=== PATIENT | male | born 1955 | race Caucasian/White ===

== ENCOUNTER 2018-08-11 05:46 | Observation (INO) | payer OTHER ==
--- NOTE | 2018-08-03 10:25 | GHP ---
DATE OF ADMISSION: 08/11/2018 PROBLEM: Right knee degenerative arthritis. HISTORY OF PRESENT ILLNESS: The patient is a 63-year-old man admitted for a right total knee arthrop lasty. He has been receiving intermittent viscosupplementation injections since 2012. The most rece nt injections in March did not help. His knee has been progressively more painful. It feels unstable . If he missteps and jams the knee, he gets excruciating pain. He has failed nonsurgical treatment. He is having significant pain, which is limiting his activities and quality of life. He is admitte d for a right total knee arthroplasty. PAST MEDICAL HISTORY: Overall, he is in good general health. He has an enlarged prostate. He has n octuria 2-3 times per night. He also has chronic lower extremity swelling. I have ordered of previo us lower extremity ultrasound. There was no evidence of DVT. No history of heart disease, stents, D VT, hepatitis, MRSA infections, or bleeding problems. He snores. He has had a previous sleep test, which was inconclusive. CURRENT MEDICATIONS: Flomax and finasteride for his prostate. ALLERGIES: Drug allergies: None. Metal allergy: None. Latex allergy: None. SOCIAL HISTORY: The patient is . 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 He does not smoke cigarettes and occasionally drinks alcohol. FAMILY HISTORY: Positive for cancer. PHYSICAL EXAMINATION: GENERAL: He is a large man. Height 6 feet 2 inches. Weight 305 pounds. Eye s: Conjunctivae and sclerae are clear. Pupils are round and reactive. MOUTH: Good oral hygiene. No loose teeth. CHEST: Clear. HEART: Regular rhythm. No murmurs. EXTREMITIES: Pertinent findin gs are limited to his right knee. He lacks about 5 degrees of full extension and flexes to 110 degre es. He has a small effusion. He is tender medially and laterally. His ligaments are stable. He plummer s chronic lower extremity edema. He has some skin changes in the lower legs suggestive of stasis parviz matitis. IMPRESSION ON ADMISSION: 1. Right knee advanced medial compartment degenerative arthritis. He is prepared for right total kn ee arthroplasty. 2. Obesity. PLAN: He will undergo a right total knee arthroplasty. The surgery has been described to him, inclu ding the risks, complications, expectations, and recovery time. I have stressed the importance of po stoperative physical therapy. I have talked to him about the risk of postop knee stiffness. Advisin g him that about 85% of people are very happy with the results of a total knee replacement, but 15% o f people are not completely satisfied. He is quite young and he is a large man. I have advised him there is a reasonable chance that he might require revision surgery in the future. Because of his si ze, I think I am going to use a cemented stem tibial component for additional stability. All his que stions have been answered, and he consents to surgery. /[id number]/MODL
[2018-08-11] MEDS ORDERED: TRANEXAMIC ACID 2,000 MG in NS 100 ML IV ONE (06:00)
[2018-08-11] MEDS ORDERED: ceFAZolin 3 GM in D5W 100 ML IV ONE (06:00)
[2018-08-11] MEDS ORDERED: ROPIVACAINE 0.2% 80 MG, EPINEPHrine 0.2 MG, KETOROLAC TROMETHAMINE 30 MG in SYRINGE 0 ML IU ONE (06:00)
[2018-08-11] MEDS ORDERED: TRANEXAMIC ACID 3,000 MG in NS (SYRINGE) 50 ML IRR ONE (06:00)
[2018-08-11] MEDS ORDERED: POVIDONE-IODINE 20 ML in SODIUM CL IRRIG SOLUTION 500 ML IRR ONE (06:00)
[2018-08-11] MEDS ORDERED: ONDANSETRON 4 MG/2 ML VIAL IVP ONE (06:17)
[2018-08-11] MEDS ORDERED: FAMOTIDINE 20 MG TAB PO ONE (06:17)
[2018-08-11] MEDS ORDERED: GABAPENTIN 300 MG CAP PO ONE (06:17)
[2018-08-11] MEDS ORDERED: DEXAMETHASONE 4 MG/ML VIAL IVP ONE (06:17)
[2018-08-11] MEDS ORDERED: ACETAMINOPHEN 325 MG TAB PO ONE (06:17)
[2018-08-11] MEDS ORDERED: LIDOCAINE 1% 2 ML INJ ID PRN (06:17)
[2018-08-11] MEDS ORDERED: LR 1,000 ML IV ONE (06:17)
[2018-08-11] MEDS ORDERED: MIDAZOLAM 2 MG/2 ML VIAL IVP ONE (06:46)
--- NOTE | 2018-08-11 06:48 | PDANEPAE ---
ANE History of Present Illness Right Knee Pain ANE Past Medical History - Cardiovascular History Hx Hypertension: No Hx Arrhythmias: No Hx Chest Pain: No Hx Coronary Artery / Peripheral Vascular Disease: No Hx CHF / Valvular Disease: No Hx Palpitations: No - Pulmonary History Hx COPD: No Hx Asthma/Reactive Airway Disease: No Hx Recent Upper Respiratory Infection: No Hx Oxygen in Use at Home: No Hx Sleep Apnea: No Sleep Apnea Screening Result - Last Documented: Positive Pulmonary History Comment: KVNG TRIGGERS - Neurologic History Hx Cerebrovascular Accident: No Hx Seizures: No Hx Dementia: No - Endocrine History Hx Diabetes: No Obesity: severe - Renal History Hx Renal Disorders: No - Liver History Hx Hepatic Disorders: No - Neurological & Psychiatric Hx Hx Neurological and Psychiatric Disorders: No - Cancer History Hx Cancer: No - Congenital Disorder History Hx Congenital Disorders: No - GI History Hx Gastrointestinal Disorders: No - Other Health History Other Health History: WEARS GLASSES - Chronic Pain History Chronic Pain: Yes (RIGHT KNEE) - Surgical History Prior Surgeries: BROKEN BONES IN HAND SET X1. IN OFFICED FOOT SURGERY ANE Review of Systems Review of Systems: - Exercise capacity METS (RN): 4 METS ANE Patient History - Allergies Allergies/Adverse Reactions: No Known Allergies Allergy (Verified 07/14/18 16:33) - Home Medications Home Medications: Ibuprofen [Motrin (*)] 200 - 600 mg PO Q6H PRN 07/07/18 [Last Taken 08/04/18] Tamsulosin HCl [Flomax 0.4 MG (*)] 0.4 mg PO DAILY 07/07/18 [Last Taken 03:30] Dutasteride [Avodart 0.5 MG (*)] 0.5 mg PO DAILY 07/14/18 [Last Taken 08/11/18 03:30] - NPO status NPO Since - Liquids (Date): 08/11/18 NPO Since - Liquids (Time): 03:30 NPO Since - Solids (Date): 08/10/18 NPO Since - Solids (Time): 19:00 - Anes Hx Anes Hx: no prior problems - Smoking Hx Smoking Status: Former smoker - Family Anes Hx Family Hx Anesthesia Complications: NONE ANE Labs/Vital Signs - Vital Signs Height: 187.96 cm Weight: 136.078 kg ANE Physical Exam - Airway Neck exam: FROM Mallampati Score: Class 2 Mouth exam: abnormal chin (< 3 fb TM distance) - Pulmonary Pulmonary: no respiratory distress - Cardiovascular Cardiovascular: regular rate and rhythym - ASA Status ASA Status: III ANE Anesthesia Plan Anesthesia Plan: MAC, spinal (Plan for spinal and adductor canal catheter. Discussed conversion to GA if necessary.) Regional Anesthesia: continuous NB, adductor canal FNB
[2018-08-11] MEDS ORDERED: VANCOMYCIN 1 GM VIAL ONE (06:54)
[2018-08-11] MEDS ORDERED: TRANEXAMIC ACID 3,000 MG/50 ML BAG IRR ONE (06:54)
[2018-08-11] MEDS ORDERED: ceFAZolin 1 GM/5 ML SYR ONE (06:55)
[2018-08-11] MEDS ORDERED: PROPOFOL/EMULSION 500 MG/50 ML BOTTLE IV ONE (06:59)
[2018-08-11] MEDS ORDERED: fentaNYL 100 MCG/2 ML INJ ONE ×3 (06:59→09:56)
[2018-08-11] MEDS ORDERED: BUPIVACAINE/DEXTROSE 7.5MG/ML 2 ML SPINAL AMP SP ONE (07:00)
--- NOTE | 2018-08-11 07:04 | PDHPUP ---
History & Physical Update H&P update statement: This history and physical update is based on an assessment of the patient which was completed after admission or registration (within 24 hours), but prior to the surgery/procedure. H&P update: H&P reviewed & patient examined
[2018-08-11] MEDS ORDERED: DEXAMETHASONE 4 MG/ML VIAL ONE ×2 (08:15→08:16)
[2018-08-11] MEDS ORDERED: ROCURONIUM 50 MG/5 ML VIAL ONE (08:15)
[2018-08-11] MEDS ORDERED: ONDANSETRON 4 MG/2 ML VIAL ONE (08:16)
[2018-08-11] MEDS ORDERED: oxyCODONE IR 5 MG TAB PO PRN ×2 (08:53→09:43)
[2018-08-11] MEDS ORDERED: METOCLOPRAMIDE 10 MG/2 ML VIAL IVP PRN ×2 (08:53→09:43)
[2018-08-11] MEDS ORDERED: LABETALOL HCL 5 MG/ML 20 ML MDV IVP PRN (08:53)
[2018-08-11] MEDS ORDERED: NALOXONE HCL 0.4 MG/ML INJ IVP PRN (08:53)
[2018-08-11] MEDS ORDERED: MEPERIDINE 25 MG/0.5 ML AMP IVP PRN (08:53)
[2018-08-11] MEDS ORDERED: PROMETHAZINE HCL 25 MG/ML INJ IVP PRN ×2 (08:53→09:43)
[2018-08-11] MEDS ORDERED: LR 500 ML IV PRN (08:53)
--- NOTE | 2018-08-11 09:22 | POSTOPPROG ---
Post Op Note Date of Operation: 08/11/18 Surgeon: Anthony Munroe Inspection Supervisor: Sara Anesthesiologist: Jacoby Anesthesia: GET(General Endotracheal), IV Sedation, Spinal Post-op Diagnosis: Right knee severe degenerative arthritis. Procedure: Right total knee arthroplasty Inf/Abcess present in the surg proc area at time of surgery?: No EBL: 50-100 (Adductor canal block in PACU with indwelling catheter)
[2018-08-11] MEDS ORDERED: DIPHENOXYLATE/ATROPINE LOMOTIL 1 TAB PO PRN (09:43)
[2018-08-11] MEDS ORDERED: NS 500 ML IV PRN (09:43)
[2018-08-11] MEDS ORDERED: ONDANSETRON DISINTEGRATING 4 MG TAB PO PRN (09:43)
[2018-08-11] MEDS ORDERED: MAGNESIUM HYDROXIDE 30 ML UDCUP PO PRN (09:43)
[2018-08-11] MEDS ORDERED: ONDANSETRON 4 MG/2 ML VIAL IVP PRN (09:43)
[2018-08-11] MEDS ORDERED: TEMAZEPAM 15 MG CAP PO PRN (09:43)
[2018-08-11] MEDS ORDERED: LACTULOSE 20 GM/30 ML UDCUP PO PRN (09:43)
[2018-08-11] MEDS ORDERED: PROMETHAZINE HCL 25 MG SUPPR PR PRN (09:43)
[2018-08-11] MEDS ORDERED: traMADol 50 MG TAB PO PRN (09:43)
[2018-08-11] MEDS ORDERED: CYCLOBENZAPRINE 10 MG TAB PO PRN (09:43)
[2018-08-11] MEDS ORDERED: diphenhydrAMINE 25 MG CAP PO PRN (09:43)
[2018-08-11] MEDS ORDERED: POLYETHYLENE GLYCOL 3350 17 GM PKT PO PRN (09:43)
[2018-08-11] MEDS ORDERED: BISACODYL 10 MG SUPP PR PRN (09:43)
[2018-08-11] MEDS: fentaNYL 100 MCG/2 ML INJ IVP PRN ×2 (09:59→10:05)
[2018-08-11] MEDS ORDERED: LR 1,000 ML IV SCH (10:00)
[2018-08-11] MEDS ORDERED: HYDROmorphONE/DILAUDID 2 MG/ML INJ ONE (10:03)
[2018-08-11] MEDS: HYDROmorphONE/DILAUDID 2 MG/ML INJ IVP PRN ×3 (10:06→10:40)
--- NOTE | 2018-08-11 12:16 | POSTANESTH ---
Post Anesthetic Evaluation Cardiovascular Status: Normal, Stable Respiratory Status: Normal, Stable Level of Consciousness/Mental Status: Can Participate in Eval Pain Control: Adequate, Prn Tx Ordered Nausea/Vomiting Control: Adequate, Prn Tx Ordered Complications Possibly Related to Anesthesia: None Noted
[2018-08-11] MEDS: DUTASTERIDE 0.5 MG CAP PO SCH (12:24)
[2018-08-11] MEDS: KETOROLAC 15 MG/1 ML SDV IVP SCH ×3 (12:24→23:29)
[2018-08-11] MEDS: ACETAMINOPHEN 325 MG TAB PO SCH ×3 (12:25→23:30)
[2018-08-11] MEDS: TAMSULOSIN HCL 0.4 MG CAP PO SCH (12:31)
--- NOTE | 2018-08-11 12:33 | ASMTCMCOM ---
CM Note CM Note Notes: Pt's chart reviewed for d/c planning. Pt is a 63 y/o male who underwent rt total knee arthroplasty. Pt is fairly healthy with an enlarged prostate, nocturia 2-3x a night and chronic lower extremity swelling. 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 His surgeon stressed how important physical therapy will be to his recovery. It is unclear right now whether the surgeon will recommend out-pt or in home. CM will follw. D/C Plan: TBD Date Signed: 08/11/2018 12:33 PM Electronically Signed By:Beatrice Mckeon
--- NOTE | 2018-08-11 13:06 | GOP ---
DATE OF OPERATION: 08/11/2018 SURGEON: Anthony Munroe MD IRONWORKER WIRE FENCE ERECTOR: Kimani Alvarez BENEFITS ADVISOR and NING Romero ANESTHESIA: A combination of Marcaine, spinal, general anesthesia, an adductor canal block. ANESTHESIOLOGIST: Dr. Mike PREOPERATIVE DIAGNOSIS: Right knee severe degenerative arthritis with varus deformity. POSTOPERATIVE DIAGNOSIS: Right knee severe degenerative arthritis with varus deformity. PROCEDURE PERFORMED: Right total knee arthroplasty, cemented, Cantor and Nephew Journey II, posterior stabilized. FINDINGS: DESCRIPTION OF PROCEDURE: The patient was given 3 g of IV Ancef preoperatively within 60 minutes of surgery. He also received 2000 mg of IV tranexamic acid. He weighed approximately 305 pounds. He w as placed on the operating room table and Dr. Mike gave him spinal anesthesia. He was then place d supine. It became apparent that the spinal anesthesia was not affective. He was then given genera l endotracheal anesthesia. A Szymanski catheter was not used. He wore a ANTOINETTE stocking and SCD on the non operative leg. A bolster was placed under the right hip to prevent excessive external rotation of th e leg. He had a very large bulky leg. His right lower extremity was prepped with ChloraPrep from th e upper thigh tourniquet to the tips of the toes. It was draped free using sterile sheets, stockinet te, and Ioban plastic adhesive drape. His lower leg was wrapped with compressive Coban. The leg was exsanguinated with elevation and a 6-inch compressive wrap, and the pneumatic tourniquet was inflate d to 350 mmHg. The [employer] Health Organization time-out was performed to verify the correct patient identity and the c orrect surgical side and site. The [place] time-out was also performed. The Bag Borrow or Stealayo leg holding device was sterilely attached to the operating room table and used throughout the procedure to help position the knee. A straight midline incision was made centered on the patell a. Subcutaneous tissues were sharply divided and hemostasis was obtained using electrocautery. A mendiola bcutaneous flap was developed and the capsule and synovium were opened in medial parapatellar fashion . Extensive degenerative changes were present in the medial compartment and patellofemoral joint. H is medial capsule and periosteum were elevated off the rim of the medial tibial plateau all the way a round to the posteromedial corner. His medial collateral ligament was released enough to balance the medial side of the knee. In order to improve exposure, his patella was prepared first. The original thickness of the patella was measured. Peripheral osteophytes were removed. I cut a flat surface on the back of the patella. He was sized for a 41 mm round resurfacing patellar component. I removed enough bone from the srinivasan lla, such that the remaining bone, plus the thickness of the patellar component recreated the origina l thickness of the patella. The composite thickness was 27 mm. The intramedullary alignment guide system was used to set up the distal femoral cut. The distal femu r was cut in 5 degrees of valgus. Because of an 8 to 10 degree flexion contracture, I made a +2 mm c ut on the distal femur. The sizing jig was used to determine proper femoral sizing. I shifted the j ig anteriorly 1 mm in order to accommodate a size 7 femoral component without notching the anterior c ortex. The 5-in-1 cutting block was applied, and the anterior and posterior condylar cuts and chamfe r cuts were made. The final jig was used to remove the central portion of the distal femur to accomm odate the posterior stabilized femoral component. I was careful to determine proper rotation by refe rencing off Whitesides line and other bony landmarks. Each cut was checked for accuracy. The femur was sized for a size 7 posterior stabilized component. Next, the tibial component was prepared. The proximal tibial cut was made using the extramedullary a lignment guide system. The cut was made in a few degrees of posterior slope. Because of his large s ize, I removed a little extra bone from the tibia in order to have a thicker tibial component. I was careful to achieve proper varus valgus alignment and proper rotation. The posterior compartment was cleared of meniscal remnants. Osteophytes were removed from the back of the femoral condyles. I ch ecked the flexion, extension gaps and they were equal and balanced. The tibia was sized for a size 6 component. With the trial components in place, I selected a 13 mm polyethylene posterior stabilized tibial inser t. The knee came to full extension and flexed to 120 degrees. He had about 2 mm of lateral laxity i n extension because of his previous varus deformity. His collateral ligaments were stable and balanc ed in flexion. The patellar button was applied, and tracking was checked. Tracking was excellent wi thout any digital pressure. Because of his size and weight, I chose to use a stem on the tibial base plate. The proximal tibia w as prepared for an 18 mm diameter stem. 40 cc of the joint anesthetic cocktail were injected into the posterior capsule, and the quadriceps m uscle area, and the subcutaneous tissues along the skin edges. The surfaces were prepared for cementing. They were carefully cleaned with the pulsating lavage and thoroughly dried. The CarboJet device was used to blow dry the cancellous surfaces. A double batch of high viscosity methylmethacrylate cement with 2 g of powdered vancomycin added was mixed. While i t was still in a doughy state, all [address] components were cemented in place. Excess cement was removed be fore it hardened. I assembled the base plate using an 18 mm x 100 mm non-slotted stem. I placed a c ement restrictor in the tibia to control the distal migration of the cement. The 13 mm trial tibial insert was re-tried and was the proper thickness. The actual component was inserted and locked into place. The knee was thoroughly irrigated 1 final time with a dilute Betadine solution. The tourniquet was deflated and the total tourniquet time was 1 hour and 11 minutes. 50 cc of tranex amic acid solution was instilled into the wound. The wound was packed with a lap and then wrapped wi th a 6-inch Jackson bandage for 2 or 3 minutes. The vastus medialis portion of the extensor mechanism was repaired with several interrupted figure-of -eight #2 FiberWire sutures. The capsule and synovium were closed first with multiple interrupted fi [id number] PDS sutures, followed by a running. barbed Ethicon Stratafix PDO suture. Subcutaneou s tissues were closed with a running 0 barbed Ethicon Stratafix Monoderm suture. The skin was closed with a running 3-0 barbed Ethicon Stratafix Monoderm subcuticular suture. The skin was sealed with 1/2 inch Steri-Strips. The wound was covered with a large Mepilex waterproof dressing and a 6-inch c ompressive wrap. A long-leg ANTOINETTE stocking and SCD were applied, followed by the cooling device. The sacral Mepilex dressing was also applied. I used a size 7 cemented Cantor and Nephew Oxinium posterior stabilized femoral component, a size 6 ce mented tibial base plate, with an 18 mm x 100 mm non-slotted stem, a 13 mm posterior stabilized tibia l insert, and a 41 mm cemented round all-polyethylene resurfacing patellar component. The estimated blood loss following deflation of the tourniquet was about 100 cc. The sponge and needle count were correct on 2 occasions. He was awakened from anesthesia, transferred to his gurney, and taken to PACU in satisfactory conditi on. There were no recognized intraoperative complications. In the PACU, for additional postoperativ e pain control, Dr. Mike performed an adductor canal block with an indwelling catheter. Kimani Alvarez and Troy Leblanc acted as surgical assistants. Their assistance was a medical necess ity for safe completion of the procedure. /[id number]/MODL
[2018-08-11] MEDS: ceFAZolin 2 GM/DEXTROSE 100 ML IV SCH ×2 (16:09→23:30)
[2018-08-11] MEDS: ASPIRIN 325 MG TAB PO SCH (21:34)
[2018-08-11] MEDS: SENNOSIDES/DOCUSATE SODIUM TAB PO SCH (21:35)
[2018-08-11] MEDS: FAMOTIDINE 20 MG TAB PO SCH (21:35)
[2018-08-12] MEDS: ACETAMINOPHEN 325 MG TAB PO SCH ×2 (05:18→13:40)
[2018-08-12] MEDS: KETOROLAC 15 MG/1 ML SDV IVP SCH (05:18)
--- NOTE | 2018-08-12 07:41 | SOAPPROG ---
SOAP Progress Note Assessment/Plan: Assessment: Afebrile. Awake and alert. Very little pain so far. He has been up and walking in the room. Voiding spontaneously. H&H are good. Postop films look excellent. Plan: Continue physical therapy today. Long leg film before discharge. Discharge later today. 08/12/18 07:40 Objective: Vital Signs Temp Pulse Resp BP Pulse Ox 36.7 C 67 18 153/84 H 97 08/12/18 07:31 08/12/18 07:31 08/12/18 07:31 08/12/18 07:31 08/12/18 07:31 Laboratory Results 08/12/18 04:36 08/11/18 08/12/18 08/13/18 05:59 05:59 05:59 Intake Total 3050 Output Total 1600 Balance 1450 ICD10 Worksheet Patient Problems: Problems Problem Status Onset Osteoarthritis of right knee Acute
--- NOTE | 2018-08-12 08:01 | GDS ---
ADMISSION DIAGNOSIS: Right knee severe degenerative arthritis. DISCHARGE DIAGNOSIS: Right knee severe degenerative arthritis. OPERATION PERFORMED: 08/11/2018, a right total knee arthroplasty. POSTOPERATIVE COMPLICATIONS: None. CONDITION ON DISCHARGE: Improved. HOSPITAL COURSE: The patient was admitted to the hospital the morning of surgery. His admission CBC was normal. The same day under a combination of attempted spinal and general anesthesia, he underwe nt a right total knee arthroplasty. Postoperatively, he was treated with multimodal DVT prophylaxis, including aspirin. On the first postoperative day, his hemoglobin and hematocrit were 14.0 and 40.7 . He was seen by Physical Therapy and made good progress with ambulation, stairs, and knee range of motion. By the time of discharge, he was afebrile, his wound was dry, and he was independent walking with a walker. DISPOSITION: The patient discharged to his home. He will go to outpatient physical therapy in [facility]. He may progress to full weightbearing on the right as tolerated. Use ANTOINETTE stockings for 1 week. Continue aspirin 325 mg p.o. daily for 21 days. He has prescriptions for oxycodone, tramadol and C elebrex for pain control. I will see him back in the office on 08/26/2018. If there any problems, kristen celis is to call me at the office. /[id number]/MODL
[2018-08-12] MEDS: ASPIRIN 325 MG TAB PO SCH (08:10)
[2018-08-12] MEDS: SENNOSIDES/DOCUSATE SODIUM TAB PO SCH (08:10)
[2018-08-12] MEDS: FAMOTIDINE 20 MG TAB PO SCH (08:10)
[2018-08-12] MEDS: TAMSULOSIN HCL 0.4 MG CAP PO SCH (08:11)
[2018-08-12] MEDS: DUTASTERIDE 0.5 MG CAP PO SCH (08:11)
[2018-08-12] MEDS ORDERED: FERROUS SULFATE 140 MG TAB.ER PO SCH (09:00)
[2018-08-12] MEDS ORDERED: ROPIVACAINE HCL 150 MG/30 ML INJ ONE (09:16)
[2018-08-12] MEDS ORDERED: LIPID EMULSION 20% 100 ML IV PRN (09:23)
--- NOTE | 2018-08-12 09:32 | PDPAINCON ---
Pain Management Consultation Patient referred by : Shaneka - Subjective Pain at rest (/10): 3 Pain is: low, well controlled Activity: able to ambulate, participating in PT - Objective Technique: continuous peripheral nerve block Catheter site: clean, dry, intact, no erythema/edema/exudate Sensory and motor exam: consistent with block - Assessment/Plan Assessment/Plan: pain well-controlled, continue current mgmt (S/p R TKA POD #1 with indwelling adductor canal catheter in place. Patient reporting 2-3/10 pain described as "soreness", no sensorimotor deficits. APS consulted to re-bolus AC catheter and remove it prior to discharge home today. This was done uneventfully with 0.5% ropivacaine 20ml injected incrementally with negative aspiration and continuous hemodynamic monitoring. Catheter removed with tip intact. )
--- NOTE | 2018-08-12 10:03 | ASMTLACE ---
WHIT Length of stay for Answers: 2 days current admission Acuity / Level of Answers: No Care: Did the patient have an inpatient admission? # of Emergency department Answers: 0 visits in the last 6 months Score: 2 Date Signed: 08/12/2018 10:03 AM Electronically Signed By:JACOB Rome
--- NOTE | 2018-08-12 10:05 | ASMTCMCOM ---
CM Note CM Note Notes: PT rec home/outpatient. Pt medically stable for d/c with outpatient PT per MD rec. No CM d/c needs identified. Date Signed: 08/12/2018 10:04 AM Electronically Signed By:JACOB Rome
[2018-08-12 11:48] VITALS: BP 127/85
== END 2018-08-12 15:19 | disposition home or self-care (01) ==
LOC: F3N 05:46
PROVIDERS: ADMIT Orthopaedic Surgery; ATTEND Orthopaedic Surgery
PROC: 0SRC0J9 Replacement of Right Knee Joint with Synthetic Substitute, Cemented, Open Approach (ICD-10-PCS; principal; 2018-08-11 07:15)
DX: M17.11 Unilateral primary osteoarthritis, right knee (principal); M25.761 Osteophyte, right knee; N40.1 Benign prostatic hyperplasia with lower urinary tract symptoms; R22.40 Localized swelling, mass and lump, unspecified lower limb; E66.9 Obesity, unspecified
CPT/HCPCS: 27447; 73560; 77073; 97116; 97161; 97166; G0378; C1713; J0171; J0690; J1100; J1170; J1885; J2250; J2405; J2704; J2795; J3010; J3370

== ENCOUNTER 2018-08-24 06:33 | Emergency (ER) | payer OTHER ==
[2018-08-24] MEDS ORDERED: LIDOCAINE 2% JELLY 20 ML (UROJECT) ONE (06:51)
--- NOTE | 2018-08-24 06:51 | EDPHY ---
H & P Stated Complaint: urinary retention elizabeth cath removed yesterday morning hasn't urinated Source: Patient Exam Limitations: No limitations - Personal History Current Tetanus/Diphtheria Vaccine: Yes Current Tetanus Diphtheria and Acellular Pertussis (TDAP): Yes - Medical/Surgical History Hx Asthma: No Hx Chronic Respiratory Disease: No Hx Diabetes: No Hx Cardiac Disease: No Hx Renal Disease: No Hx Cirrhosis: No Hx Alcoholism: No Hx HIV/AIDS: No Hx Splenectomy or Spleen Trauma: No Other PMH: Chronic leg swelling, Enlarged prostate, urinary retention, right knee surgery - Social History Smoking Status: Former smoker Time Seen by Provider: 08/24/18 06:44 HPI/ROS: HPI The patient presents with urinary retention, reports voiding approximately 100 mL with maximal effort over the last 24 hr. He had a Elizabeth catheter in place for the last 1 week for urinary retention placed by Dr. Brambila of Urology. This was placed due to urinary retention thought to be related to opiate pain medication he was taking for knee replacement operation as well as his history of BPH. He is on duasteride and tamsulosin for the last several months. He has stopped taking all opiate pain medication for the last 1 week and he was optimistic that he would be able to void without difficulty now that he is off of this, however he is unable currently. REVIEW OF SYSTEMS 10 systems were reviewed and negative with the exception of the elements mentioned in the history of present illness. PMHx: Recent knee replacement, history of BPH, followed by [facility] PHYSICAL General Appearance: Alert, pacing and uncomfortable appearing Eyes: Pupils equal and round no pallor or injection ENT, Mouth: Mucous membranes moist Respiratory: There are no retractions, lungs are clear to auscultation Cardiovascular: Regular rate and rhythm Gastrointestinal: Abdomen is distended and tender Neurological: A&O, moves all extremities Skin: Warm and dry, no rashes Musculoskeletal: Neck is supple non tender Extremities: symmetrical, full range of motion Psychiatric: Patient is oriented X 3, there is no agitation (RicardouzziLenore) Constitutional: Initial Vital Signs Temperature (C) 36.5 C 08/24/18 06:35 Heart Rate 110 H 08/24/18 06:35 Respiratory Rate 18 08/24/18 06:35 Blood Pressure 159/107 H 08/24/18 06:35 O2 Sat (%) 96 08/24/18 06:35 O2 Delivery Mode Room Air Allergies/Adverse Reactions: No Known Allergies Allergy (Verified 08/24/18 06:37) Home Medications: Medication Instructions Recorded Tamsulosin HCl [Flomax 0.4 MG (*)] 0.4 mg PO DAILY 07/07/18 Dutasteride [Avodart 0.5 MG (*)] 0.5 mg PO DAILY 07/14/18 Acetaminophen [Tylenol 325mg (*)] 650 mg PO Q6HRS tab 08/12/18 Aspirin [Aspirin 325 mg (*)] 325 mg PO DAILY tab 08/12/18 celeCOXIB [Celebrex (*)] 200 mg PO DAILY cap 08/12/18 Medical Decision Making Differential Diagnosis: 63-year-old male with history of BPH followed by Urology on medication, recent knee replacement on opioids presents for recurrent urinary retention. His Elizabeth was removed yesterday by Dr. Brambila. However, over the last 24 hr he is only been able to void about 100 mL of urine. Here bladder scan reveals about 14 mL of urine. We plan to place a Elizabeth catheter again. I will check urinalysis. The patient's symptoms are likely related to BPH, unclear if medication is a contributing factor at this time. He will need to have follow- up with Urology in about a week. (Lenore Fernández) Other Provider: I assumed care of the patient at 0700. (Ino Shannon) Departure - Departure Disposition: Home, Routine, Self-Care Clinical Impression: Acute retention of urine Condition: Good Instructions: Urinary Retention in Men (ED), Enlarged Prostate (BPH) (ED) Additional Instructions: Please follow-up with your urologist in the next 1-2 days to determine how long the catheter should be in place. Referrals: Saeid Corey MD [Primary Care Provider] - As per Instructions Kiel Brambila MD [Medical Doctor] - As per Instructions
[2018-08-24 07:36] VITALS: BP 140/69
== END 2018-08-24 07:33 | disposition home or self-care (01) ==
PROC: 0T9B70Z Drainage of Bladder with Drainage Device, Via Natural or Artificial Opening (ICD-10-PCS; principal; 2018-08-24)
DX: R33.9 Retention of urine, unspecified (principal); N40.0 Benign prostatic hyperplasia without lower urinary tract symptoms; Z96.651 Presence of right artificial knee joint